=== PATIENT | female | born 1995 | race Caucasian/White ===

== ENCOUNTER 2019-01-02 02:33 | Inpatient (IN) | payer MEDICAID ==
[2019-01-02 03:28] LABS: ADD MAN DIFF? NO
[2019-01-02] MEDS ORDERED: LIDOCAINE 1% (MPF) 30 ML INJ INJ (03:30)
[2019-01-02] MEDS ORDERED: CARBOPROST 250 MCG INJ IM (03:30)
[2019-01-02] MEDS ORDERED: BUTORPHANOL 2 MG INJ IV ×2 (03:30)
[2019-01-02] MEDS ORDERED: METHYLERGONOVINE 0.2 MG INJ IM (03:30)
[2019-01-02] MEDS ORDERED: OXYTOCIN 30 UNITS/LR 500 ML IV ×2 (03:30)
[2019-01-02] MEDS ORDERED: IBUPROFEN 600 MG TAB PO (03:30)
[2019-01-02] MEDS ORDERED: MISOPROSTOL 200 MCG TAB PR (03:30)
[2019-01-02] MEDS ORDERED: MINERAL OIL LIGHT 10 ML VIAL TOP (03:30)
[2019-01-02 03:31] LABS: BASOPHILS % 0.4 % (0.0-2.0); EOSINOPHILS # 0.1 10^3/ul (0.0-0.5); EOSINOPHILS % 1.3 % (0.0-7.0); LYMPHOCYTES # 2.1 10^3/ul (0.8-2.9); LYMPHOCYTES % 24.7 % (15.0-51.0); MEAN CORPUSCULAR HEMOGLOBIN 29.8 pg (29.0-33.0); MEAN CORPUSCULAR HGB CONC 33.3 g/dl (32.0-37.0); MEAN CORPUSCULAR VOLUME 89.3 fl (82.0-101.0); MEAN PLATELET VOLUME 10.7 fl (7.4-10.4); MONOCYTE # 0.9 10^3/ul (0.3-0.9); MONOCYTES % 10.6 % (0.0-11.0); NEUTROPHIL # 5.2 10^3/ul (1.6-7.5); NEUTROPHILS % 61.9 % (39.0-77.0); PLATELET COUNT 190 10^3/UL (140-415); RED BLOOD COUNT 4.03 10^6/ul (4.20-5.40); RED CELL DISTRIBUTION WIDTH 13.1 % (11.5-14.5)
[2019-01-02 03:31] LABS: WHITE BLOOD COUNT 8.4 10^3/ul (4.8-10.8)
[2019-01-02] MEDS ORDERED: AMPICILLIN 2 GM/NS (PMX) 100 ML (03:49)
[2019-01-02] MEDS: AMPICILLIN 2 GM/NS (PMX) 100 ML IV (04:17)
[2019-01-02] MEDS: LACTATED RINGER'S 1,000 ML IV ×4 (04:17→21:03)
[2019-01-02 04:25] LABS: HEPATITIS B SURFACE ANTIGEN NEGATIVE (NEGATIVE)
[2019-01-02 04:26] LABS: INR 0.92; PROTIME 12.5 Sec (11.9-14.9)
[2019-01-02 04:27] LABS: PARTIAL THROMBOPLASTIN TIME 28.1 Sec (23.0-35.0)
[2019-01-02] MEDS ORDERED: NALOXONE (0.4 MG/ML) INJ IV (06:00)
[2019-01-02] MEDS: OXYTOCIN 30 UNITS/LR 500 ML IV ×2 (06:51→23:34)
[2019-01-02] MEDS: FENTAnyl 2MCG/ML-ROPIV 0.2% 100 ML BAG EPI ×3 (07:35→19:57)
[2019-01-02] MEDS: AMPICILLIN 1 GM/NS (PMX) 50 ML IV ×5 (08:03→23:30)
[2019-01-02 16:09] LABS: RAPID PLASMA REAGIN NONREACTIVE (NR)
[2019-01-03] MEDS: OXYTOCIN 30 UNITS/LR 500 ML IV (00:13)
[2019-01-03] MEDS ORDERED: LACTATED RINGER'S 1,000 ML IV* (00:13)
[2019-01-03] MEDS ORDERED: METHYLERGONOVINE 0.2 MG INJ IM (00:30)
[2019-01-03] MEDS ORDERED: MISOPROSTOL 200 MCG TAB PR (00:30)
[2019-01-03] MEDS ORDERED: HYDROCODONE/APAP (5/325) TAB PO ×2 (00:30)
[2019-01-03] MEDS ORDERED: CARBOPROST 250 MCG INJ IM (00:30)
[2019-01-03] MEDS ORDERED: DIBUCAINE 1% 30 GM OINT TOP (00:30)
[2019-01-03] MEDS ORDERED: OXYTOCIN 30 UNITS/LR 500 ML IV (00:30)
[2019-01-03] MEDS: LACTATED RINGER'S 1,000 ML IV (03:07)
[2019-01-03] MEDS: BENZOCAINE 20% 56 ML SPRAY TOP (06:07)
[2019-01-03] MEDS: IBUPROFEN 600 MG TAB PO ×4 (06:07→23:36)
[2019-01-03] MEDS: WITCH HAZEL/GLYCERIN PAD PR (06:07)
[2019-01-03] MEDS: LANOLIN HPA 1 PKT TOP (06:07)
[2019-01-04] MEDS: IBUPROFEN 600 MG TAB PO ×2 (06:05→11:39)
[2019-01-04 06:42] LABS: ADD MAN DIFF? NO
[2019-01-04 06:46] LABS: BASOPHIL # 0.1 10^3/ul (0.0-0.1); BASOPHILS % 0.6 % (0.0-2.0); EOSINOPHILS # 0.1 10^3/ul (0.0-0.5); EOSINOPHILS % 1.7 % (0.0-7.0); HEMATOCRIT 34.6 % (37.0-47.0); HEMOGLOBIN 11.3 g/dl (12.0-16.0); LYMPHOCYTES # 2.3 10^3/ul (0.8-2.9); LYMPHOCYTES % 26.8 % (15.0-51.0); MEAN CORPUSCULAR HEMOGLOBIN 29.3 pg (29.0-33.0); MEAN CORPUSCULAR HGB CONC 32.7 g/dl (32.0-37.0); MEAN CORPUSCULAR VOLUME 89.6 fl (82.0-101.0); MEAN PLATELET VOLUME 10.8 fl (7.4-10.4); MONOCYTE # 0.7 10^3/ul (0.3-0.9); MONOCYTES % 8.8 % (0.0-11.0); NEUTROPHIL # 5.2 10^3/ul (1.6-7.5); NEUTROPHILS % 61.3 % (39.0-77.0); PLATELET COUNT 189 10^3/UL (140-415); RED BLOOD COUNT 3.86 10^6/ul (4.20-5.40); RED CELL DISTRIBUTION WIDTH 13.2 % (11.5-14.5)
[2019-01-04 06:46] LABS: WHITE BLOOD COUNT 8.4 10^3/ul (4.8-10.8)
[2019-01-04] MEDS: LANOLIN HPA 1 PKT TOP (11:39)
[2019-01-05] MEDS ORDERED: DIPHTH/TET/ACEL PERTUSS (ADULT) 0.5 ML VIAL IM* (09:00)
[2019-01-05] MEDS ORDERED: VARICELLA VACCINE LIVE/PF 1,350 UNIT/0.5 ML ML SC* (09:00)
[2019-01-05] MEDS ORDERED: MEASLES,MUMPS,RUBELLA VACCINE INJ SC* (09:00)
== END 2019-01-04 16:55 | disposition home or self-care (01) | DRG 807 ==
LOC: OBT 02:33 → PP1 01-03 01:13 → L-D 02:34 → OBT 03:00 → L-D 03:00
PROVIDERS: Obstetrics & Gynecology
PROC: 10E0XZZ Delivery of Products of Conception, External Approach (ICD-10-PCS; principal; 2019-01-03)
PROC: 0KQM0ZZ Repair Perineum Muscle, Open Approach (ICD-10-PCS; 2019-01-03)
DX: O70.1 Second degree perineal laceration during delivery (principal); Z37.0 Single live birth; Z3A.40 40 weeks gestation of pregnancy
CPT/HCPCS: 62322; 85025; 85610; 85730; 86592; 86850; 86900; 86901; 87340